=== PATIENT | female | born 1990 | race Caucasian/White ===

== ENCOUNTER 2018-08-28 11:29 | Emergency (ER) | payer SELFPAY ==
[2018-08-28] MEDS ORDERED: Ondansetron ODT 4 MG TAB ONE (14:08)
[2018-08-28] MEDS ORDERED: Acetaminophen 500 MG TAB ONE (14:08)
== END 2018-08-28 14:15 | disposition home or self-care (01) ==
LOC: ERS 11:29
DX: J30.9 Allergic rhinitis, unspecified (principal); R11.2 Nausea with vomiting, unspecified; R51 Headache; J45.909 Unspecified asthma, uncomplicated
CPT/HCPCS: 99283; Q0162